=== PATIENT | male | born 1960 | race Caucasian/White ===

== ENCOUNTER 2022-05-02 08:20 | Outpatient (CLI) | payer OTHER, SELFPAY ==
[2022-05-02 13:57] LABS: Albumin* 4.2 g/dL (3.3-5.0)
[2022-05-02 14:01] LABS: Alanine Aminotransferase* 22 U/L (4-50); Alkaline Phosphatase* 70 U/L (40-150); Aspartate Amino Transferase* 24 U/L (12-35); Bilirubin Direct* 0.3 mg/dL (0.0-0.5); Bilirubin Total* 1.1 mg/dL (0.1-1.5); Total Protein* 6.6 g/dL (6.0-8.3)
== END 2022-05-02 08:21 | disposition home or self-care (01) ==
LOC: FRMREF 08:21
PROVIDERS: PCP Family Medicine; Visit Provider Family Medicine
DX: E78.5 Hyperlipidemia, unspecified (principal)
CPT/HCPCS: 80076

== ENCOUNTER 2022-05-08 09:18 | Outpatient (CLI) | payer OTHER, SELFPAY ==
[2022-05-08 13:40] LABS: Cholesterol* 140 mg/dL (90-199); HDL Cholesterol* 61 mg/dL (>=40); LDL Cholesterol Calculated 65 mg/dL (<100); Triglycerides* 68 mg/dL (40-149)
== END 2022-05-08 09:19 | disposition home or self-care (01) ==
PROVIDERS: PCP Family Medicine; Visit Provider Family Medicine
DX: E78.5 Hyperlipidemia, unspecified (principal); Z12.5 Encounter for screening for malignant neoplasm of prostate; Z79.899 Other long term (current) drug therapy
CPT/HCPCS: 80061; 84153

== ENCOUNTER 2023-09-05 15:12 | Outpatient (CLI) | payer MEDICARE, OTHER, SELFPAY | END 2023-09-05 15:13 | disposition home or self-care (01) | PROVIDERS: PCP Family Medicine; Visit Provider Family Medicine | DX: Z00.00 Encounter for general adult medical examination without abnormal findings (principal); E78.5 Hyperlipidemia, unspecified; Z12.5 Encounter for screening for malignant neoplasm of prostate; Z11.59 Encounter for screening for other viral diseases; Z13.6 Encounter for screening for cardiovascular disorders; Z80.42 Family history of malignant neoplasm of prostate | CPT/HCPCS: 80053; 80061; 84153; 86803 ==

== ENCOUNTER 2024-10-29 10:20 | Outpatient (CLI) | payer MEDICARE, OTHER, SELFPAY | END 2024-10-29 10:21 | disposition home or self-care (01) | PROVIDERS: PCP Family Medicine; Visit Provider Family Medicine | DX: E78.5 Hyperlipidemia, unspecified (principal); R03.0 Elevated blood-pressure reading, without diagnosis of hypertension; Z12.5 Encounter for screening for malignant neoplasm of prostate | CPT/HCPCS: 80053; 80061; 82043; 82570; G0103 ==